=== PATIENT | female | born 1940 | race African-American/Black ===

== ENCOUNTER 2021-04-24 10:50 | Day surgery (SDC) | payer OTHER ==
[~2021-04-24] VITALS: Ht 160 cm; Wt 142.9 kg
--- NOTE | ~2021-04-24 | O ---
[facility] [place] [address] OPERATIVE REPORT Name: CLARK ABARCA Room #: 150-6 [facility] M.R.#: [id number] Admission: 04/24/21 Attend Phys: Estrella Pina, Discharge: Date of : 44 Report #: [id number] THIS REPORT FOR: cc: FAM - Family physician unknown FAM - Family physician unknown Estrella Pina MD ~ DATE OF SERVICE: 04/24/2021 PREOPERATIVE DIAGNOSES: 1. Right carpal tunnel syndrome. 2. Right ring finger trigger finger. 3. Right thumb carpometacarpal arthritis. POSTOPERATIVE DIAGNOSES: 1. Right carpal tunnel syndrome. 2. Right ring finger trigger finger. 3. Right thumb carpometacarpal arthritis. PROCEDURES PERFORMED: 1. Right endoscopic carpal tunnel release. 2. Right ring finger trigger A1 socrates release. 3. Right thumb carpometacarpal joint injection of steroid and local anesthetic under fluoroscopy. SURGEON: Estrella Pina MD TYPE OF ANESTHESIA: General mask anesthesia. ESTIMATED BLOOD LOSS: Minimal. TOURNIQUET TIME: 17 minutes. COMPLICATIONS: None. CONDITION: Stable. DISPOSITION: Recovery room. INDICATIONS: The patient is a 80-year-old female with the above-mentioned diagnoses. She elects for operative treatment. The risks, benefits, alternatives, complications were discussed including, but not limited to infection, damage to vessels, nerves, incomplete relief or worsening of any symptoms. Informed consent was obtained. The correct extremity was identified by myself after verbal confirmation of the patient as well as visual confirmation and signed informed consent. [facility] [address] [place] [address] OPERATIVE REPORT Name: CLARK ABARCA Room #: 150-6 [facility] M.R.#: [id number] Admission: 04/24/21 Attend Phys: Estrella Pina, Discharge: Date of : 44 Report #: [id number] DESCRIPTION OF PROCEDURE: The patient was brought back to the operating room and placed in supine position. She received preoperative antibiotics. Tourniquet was placed over padding. Right lower extremity was sterilely prepped and draped in the usual fashion. Final timeout was taken to verify correct patient, operative procedure, operative site, all concurred. The arm was elevated, exsanguinated and tourniquet inflated. Next, using fluoroscopic guidance, a 21-gauge needle was inserted into the thumb CMC joint. Fluoroscopy confirmed correct position and 0.5 mL of Depo-Medrol, 0.5 mL of 0.25% Marcaine was injected into the thumb CMC joint. The fluid flowed well. An oblique incision was made over the ring finger A1 socrates. Dissection was carried down through subcutaneous tissue with tenotomy scissors. The thickened A1 socrates was easily identified and incised. A mild amount of excess tenosynovium was excised as well. The finger was taken through a passive range of motion and tendons glided smoothly. Next, attention was placed to the carpal tunnel. A transverse incision was made from the most proximal to distal wrist crease in line with the ulnar border of the palmaris longus tendon. Dissection was carried down through subcutaneous tissue with tenotomy scissors. The antebrachial fascia was identified and incised. It was then incised for a few millimeters proximal. Next, a distal incision was made approximately 1.5 cm at the distal edge of the carpal tunnel. Dissection was carried down through the subcutaneous tissue with tenotomy scissors. The fascia was carefully incised. Next, a [place] elevator was placed through the carpal tunnel and any synovial tissue was elevated off the undersurface of the transverse carpal ligament. Next, a blunt trocar and cannula were inserted with the wrist in maximal extension and digital compression distally. The blunt trocar was removed. The camera was inserted and the nice transverse fibers of the undersurface of the transverse carpal ligament was easily identified. The hook plate was brought in distally and the transverse carpal ligament was transected all the way from the antebrachial fascia of the forearm all the way through the fat in the palm. The nerve looked to be in excellent condition. The release was deemed complete by direct visualization as well as palpation with a [place] elevator. The wounds were all thoroughly irrigated. Skin was closed with 4-0 nylon suture. The wounds were infiltrated with 5 mL of 0.25% Marcaine in divided. Wounds were dressed with Adaptic and sterile gauze. She was placed in a bulky dressing. All fingers were pink, brisk capillary refill at the conclusion of case. All sponge and needle counts were correct. The patient transferred to postoperative recovery room in stable condition. By: 1403 1510 Estrella Pina MD /brennan
[~2021-04-24 10:50] MED LIST: ALLOPURINOL 10100 M1 PO; FLUTICASONE-SA1 EAC3 INH; FUROSEMIDE 20 M20 M1 PO; GLIPIZIDE ER2.5 MG PO; LEVOTHYROXINE112 MCG PO; LOSARTAN POTASS50 MG PO; NOVOLIN 70100 UNIT/1 SUBQ; OMEPRAZOLE40 MG PO; PREGABALIN200 MG PO; SINGULAIR 10 MG10 M1 PO; TYLENOL EXTRA500 MG PO; ZOCOR 20 MG TAB20 M1 PO
[2021-04-24 13:15] LABS: CALCIUM 9.2 mg/dL (8.5-10.1); CREATININE 1.2 mg/dL (0.6-1.0); POTASSIUM 4.1 mmol/L (3.5-5.1)
[2021-04-24 14:05] VITALS: BP 166/56
--- NOTE | 2021-04-24 14:45 | EKG ---
[address] [address] ELECTROCARDIOGRAM REPORT Name: TEVINCLARK Room #: 150-6 [facility].#: [id number] Admission: 04/24/21 Attend Phys: Estrella Pina, Discharge: Date of : 44 Report #: [id number] [facility] Test Date: 2021-04-24 Test Time: 13:04:55 Pat Name: CLARK ABARCA Department: Room: 150 Gender: F Accounts Payable Lead: [place] : 1940 Requested By: Estrella Pina Order Number: [id number] MD: Jordan Sifuentes Measurements Intervals [place] Rate: 60 P: 66 WV: 168 QRS: 15 QRSD: 87 T: 54 QT: 414 QTc: 414 Interpretive Statements Sinus rhythm No previous ECG available for comparison Electronically Signed On 04-24-2021 14:45:03 CDT by Jordan Sifuentes [email or web address] <ELECTRONICALLY SIGNED> By: Jordan Sifuentes MD, [facility] 04/24/21 1445 1304 1304 Jordan Sifuentes MD, FACC /EPI
[2021-04-24 15:29] VITALS: BP 166/56
[2021-04-24 15:30] VITALS: BP 166/56
== END 2021-04-24 16:16 | disposition home or self-care (01) ==
LOC: OR 10:50 → TBA 10:51 → OR 13:25
PROVIDERS: ATTEND Orthopaedic Surgery Hand Surgery
DX: G56.01 Carpal tunnel syndrome, right upper limb (principal); M65.341 Trigger finger, right ring finger; M18.11 Unilateral primary osteoarthritis of first carpometacarpal joint, right hand; I10 Essential (primary) hypertension; E11.9 Type 2 diabetes mellitus without complications; E78.5 Hyperlipidemia, unspecified; G47.30 Sleep apnea, unspecified; K21.9 Gastro-esophageal reflux disease without esophagitis; Z98.890 Other specified postprocedural states; Z79.899 Other long term (current) drug therapy; Z79.4 Long term (current) use of insulin; Z20.822 Contact with and (suspected) exposure to COVID-19; Z88.0 Allergy status to penicillin
CPT/HCPCS: 50010; 50101; 50386; 56526; 56969; 57006; 57091; 57179; 62110; 62900; 70005